=== PATIENT | female | born 1965 | race Caucasian/White ===

== ENCOUNTER 2019-08-11 16:22 | Emergency (ER) | payer OTHER, SELFPAY ==
[2019-08-11] VITALS (7 sets, daily range): BP systolic 103–143; BP diastolic 58–86; PULSE 64–82; RESP 16–18; TEMP 36.7; O2SAT 98–100; BMI 26.6
--- NOTE | 2019-08-11 16:32 | CTR_ITS ---
PROCEDURE INFORMATION: Exam: CT Head Without Contrast Exam date and time: 08/11/2019 4:47 PM Age: 54 years old Clinical indication: Injury or trauma; Fall; Additional info: Fall, possible loc fell of ladder hitting head TECHNIQUE: Imaging protocol: Computed tomography of the head without contrast. Total DLP: 881.44 mGy-cm Radiation optimization: All CT scans at this facility use at least one of these dose optimization techniques: automated exposure control; mA and/or kV adjustment per patient size (includes targeted exams where dose is matched to clinical indication); or iterative reconstruction. COMPARISON: No relevant prior studies available. FINDINGS: Brain: Normal. No hemorrhage. Unremarkable white matter. No mass effect. Ventricles: Normal. No ventriculomegaly. Bones/joints: Unremarkable. No acute fracture. Sinuses: Visualized sinuses are unremarkable. No fluid levels. Mastoid air cells: Visualized mastoid air cells are well aerated. Soft tissues: Unremarkable. CT/CT head wo con* [id number] IMPRESSION: No acute intracranial abnormality. Radiation Dose CTDIVOL = (mGy): DLP = 881.44 (mGy-cm)
--- NOTE | 2019-08-11 16:32 | CTR_ITS ---
PROCEDURE INFORMATION: Exam: CT Cervical Spine Without Contrast Exam date and time: 08/11/2019 4:47 PM Age: 54 years old Clinical indication: Injury or trauma; Initial encounter; Blunt trauma; Patient HX: Fall approx. 4 ft from ladder; Additional info: Fall, neck pain TECHNIQUE: Imaging protocol: Computed tomography images of the cervical spine without contrast. Total DLP: 558 mGy-cm Radiation optimization: All CT scans at this facility use at least one of these dose optimization techniques: automated exposure control; mA and/or kV adjustment per patient size (includes targeted exams where dose is matched to clinical indication); or iterative reconstruction. COMPARISON: No relevant prior studies available. FINDINGS: Vertebrae: No visible fracture, subluxation, or dislocation. Discs/Spinal canal/Neural foramina: Moderate degenerative disease and degenerative disc disease with disc space height loss and spondylosis deformans C5/C6 and to a less significant degree C6/C7. No visible significant central canal stenosis. Mild right neural foramina narrowing C5/C6. Mild posterior annular disc bulge osteophyte complex C5/C6 without evidence of significant central canal stenosis/spinal stenosis. Soft tissues: Unremarkable. Lungs: Lung apices are normal. CT/CT cervical spin wo con* [id number] IMPRESSION: No visible fracture, subluxation, or dislocation. Radiation Dose CTDIVOL = (mGy): DLP = 558 (mGy-cm)
--- NOTE | 2019-08-11 16:32 | CTR_ITS ---
PROCEDURE INFORMATION: Exam: CTA Angiogram of the Abdominal Aorta and Bilateral Lower Extremities (Run-off) With IV Contrast Exam date and time: 08/11/2019 4:47 PM Age: 54 years old Clinical indication: Injury or trauma; Fall; Initial encounter; Without foreign body; Pelvic area; Left; Patient HX: Fell approx. 4 ft off ladder w puncture wound L groin from moose antler; Additional info: Puncture wound groin TECHNIQUE: Imaging protocol: CT angiogram of the abdominal aorta, pelvis and bilateral lower extremities with IV iodinated contrast. 3D rendering: MIP and/or 3D reconstructed images were created by the technologist. Total DLP: 1273.25 mGy-cm Radiation optimization: All CT scans at this facility use at least one of these dose optimization techniques: automated exposure control; mA and/or kV adjustment per patient size (includes targeted exams where dose is matched to clinical indication); or iterative reconstruction. Contrast material: OMNI 350; Contrast volume: 95 ml; Contrast route: 18G; COMPARISON: No relevant prior studies available. FINDINGS: Aorta: Not imaged Celiac trunk and mesenteric arteries: Not imaged Renal arteries: Not imaged Right iliac arteries: What was imaged reveals no evidence for occlusion or significant stenosis. Right femoral/popliteal arteries: No occlusion or significant stenosis. Right infrapopliteal arteries: No occlusion or significant stenosis. Left iliac arteries: No occlusion or significant stenosis. Left femoral/popliteal arteries: No occlusion or significant stenosis. Left infrapopliteal arteries: No occlusion or significant stenosis. Liver: Not imaged Gallbladder and bile ducts: Not imaged Pancreas: Not imaged Spleen: Not image Adrenals: Not imaged Kidneys and ureters: Not imaged Stomach and bowel: But was imaged in the field of view unremarkable. Appendix: No evidence of appendicitis. Bladder: Unremarkable. No mass. Reproductive: Unremarkable. Intraperitoneal space: Unremarkable. No free air. No significant fluid collection. Intraperitoneal space: Unremarkable. No free air. No significant fluid collection. Lymph nodes: No lymphadenopathy. Bones/joints: Nondisplaced avulsion fracture of the left anterior superior iliac spine of the ileum. The fracture fragment measures approximately 41 mm x 17 mm. Soft tissues: Rare tiny pocket of subcutaneous emphysema left groin without underlying vascular compromise or pathology. No visible loculated fluid collection to suggest the presence of hematoma, seroma, or abscess. Overlying soft tissue contusion. CT/CT angio abd aorta runof [id number] IMPRESSION: 1. Nondisplaced avulsion fracture of the left anterior superior iliac spine of the left ilium. 2. Rare tiny pocket of subcutaneous emphysema left groin without underlying vascular compromise. 3. No visible loculated fluid collection to suggest the presence of hematoma, seroma, or abscess. 4. Mild soft tissue contusion left groin. Radiation Dose CTDIVOL = (mGy): DLP = 1273.25 (mGy-cm)
--- NOTE | 2019-08-11 16:34 | W.ED.FALL ---
HPI - Fall General: Chief Complaint: Fall Stated Complaint: fell off ladder Time Seen by Provider: 08/11/19 16:32 History of Present Illness: HPI Narrative: 54-year-old female was taking a set of and worse off of wall of her being uses decoration and is she was coming down the ladder holding them she fell off of the ladder and landed on 1 of the tines of the annular it punctured her through the jeans in the left groin. She was ambulatory afterwards she did think she hit her head a little bit and may have lost consciousness she also complaining of some neck pain she denies any trouble breathing she denied any vomiting vision is normal. She is not on any blood thinners. Associated symptoms-after fall: Denies abdominal pain or chest pain Review of Systems Const: Denies: fever, chills, body aches, change in appetite, fatigue or malaise ENMT: Denies: throat pain, ear pain, nasal discharge or nasal congestion Card: Denies: chest pain, edema, shortness of breath on exertion or shortness of breath when lying down Resp: Denies: shortness of breath, productive cough or non-productive cough GI: Denies: abdominal pain, nausea, vomiting, vomiting blood, coffee grounds in vomit, diarrhea, constipation, bloating, blood in stool or black tarry stool : Denies: flank pain, difficulty urinating, painful urination, urinary frequency or urinary urgency Skin/Breast: Denies: rash or itching PFS ED PFSH: Social History Smoking and tobacco status: never smoked Physical Exam Const: COMMON NORMALS: no apparent distress GENERAL APPEARANCE: cooperative and comfortable ORIENTATION/CONSCIOUSNESS: Yes awake, Yes oriented to person, Yes oriented to place and Yes oriented to time HENMT: COMMON NORMALS: normocephalic, head/scalp atraumatic, hearing grossly normal bilaterally, external ears normal, EAC's normal, TM's normal bilaterally, nasal mucous membranes and turbinates normal, moist oral mucous membranes and oropharynx normal HEAD & SCALP: normocephalic and atraumatic NOSE: nasal mucous membranes and turbinates normal EXTERNAL EAR: Yes external ears normal EXTERNAL AUDITORY CANAL: EAC's normal TYMPANIC MEMBRANE: TM's normal bilaterally Eye: COMMON NORMALS: PERRL, EOMs intact bilaterally, conjunctivae normal and no scleral icterus CONJUNCTIVA: Yes conjunctivae normal PUPIL: Yes PERRL Neck/C-Spine: COMMON NORMALS: full ROM, no lymphadenopathy, supple and no JVD Lymph: LYMPHATIC: no lymphadenopathy noted and no lymphedema noted Resp: COMMON NORMALS: normal respiratory effort, no retractions, no use of accessory muscles and clear to auscultation bilaterally AUSCULTATION: clear to auscultation bilaterally Cardio: COMMON NORMALS: no JVD, regular rate, regular rhythm and no murmurs RATE: regular rate RHYTHM: regular rhythm GI: COMMON NORMALS: soft to palpation and no hepatosplenomegaly AUSCULTATION: Yes normoactive bowel sounds PALPATION: Yes soft, No tender, No guarding and Yes no hepatosplenomegaly Extremity: COMMON NORMALS: normal to inspection, normal capillary refill, no clubbing, cyanosis or edema, no calf tenderness and no pedal edema Neuro: SENSORIUM/ORIENTATION: Yes oriented to person, Yes oriented to place and Yes oriented to time Skin: NARRATIVE SKIN EXAM: Puncture wound in the left lateral groin there is no active bleeding from it is about 1 cm and gaping slightly there is no evidence of debris within the wound. CT was negative for any injury to vascular structures there is a avulsion fracture of the ASIS. Consistent with exam findings. Procedures Laceration Laceration 1: Site: lower extremity (Left groin) Side (If applicable): left Size (cm): 1 Description: linear Local Anesthetic: lidocaine 1% and with epi Amount of anesthesia used (mL): 7 Pre-repair: wound explored and irrigated extensively Course Vital Signs: Vital signs: Vital Signs Temperature 98.1 F 08/11/19 16:31 Pulse Rate 72 08/11/19 19:01 Respiratory Rate 18 08/11/19 19:01 Blood Pressure 134/59 08/11/19 19:01 Pulse Oximetry 99 08/11/19 19:01 MDM - Fall [facility] Narrative: Medical decision making narrative: Findings with the patient. CT head and neck are normal. There is no evidence of any serious vascular injury on the CTA of the groin and lower extremity on the left. We will go ahead and discharge her home prior to discharge the wound was anesthetized and then aggressively irrigated there was no significant bleeding no debris was flushed out. Wound was left open to heal by secondary intent. Wound care instructions given apply mupirocin twice daily. Patient be started Augmentin given hydrocodone for pain advised her that the ASIS fracture will be quite painful for the next several weeks. She is also has Augmentin 875 twice daily for 7 days any signs of infection return follow-up with primary care Lab Data: Labs: Lab Results 08/11/19 08/11/19 Range/Units 16:54 16:54 WBC 2.9 L (4.0-10.0) 10^3/ uL RBC 4.70 (4.1-5.3) 10^6/u L Hgb 10.4 L (11.5-15.3) g/dL Hct 35.4 L (37.0-47.0) % MCV 75.3 L (81-99) fL MCH 22.1 L (28.0-34.0) pg MCHC 29.4 L (30.0-36.0) g/dL RDW 17.3 H (12.1-15.1) % Plt Count 192 (130-400) 10^3/c mm MPV 8.9 (7.4-10.4) fL Neut % (Auto) 58.9 % Lymph % (Auto) 30.7 % Tyrrell % (Auto) 8.0 % Eos % (Auto) 1.4 % Baso % (Auto) 0.7 % Neut # (Auto) 1.7 L (1.8-7.7) 10^3/u L Lymph # (Auto) 0.9 (0.8-4.8) 10^3/u L Tyrrell # (Auto) 0.2 (0.2-0.9) 10^3/u L Eos # (Auto) 0.0 (0.0-0.8) 10^3/u L Baso # (Auto) 0.0 (0.0-0.1) 10^3/u L Nucleated RBC % (a uto) 0 % Nucleated RBCs # 0.0 /100WBC Sodium 135 L (136-145) mmol/L Potassium 3.9 (3.5-5.1) mmol/L Chloride 98 (98-107) mmol/L Carbon Dioxide 29 (22-29) mmol/L Anion Gap 11.9 (5-19) BUN 14 (6-20) mg/dL Creatinine 0.8 (0.5-0.9) mg/dL GFR Calculation 75.0 L (90-130) mL/min Glucose 89 (65-115) mg/dL Calculated Osmolal ity 276 L (285-295) mOsm/k g Calcium 9.7 (8.5-10.5) mg/dL Discharge Plan Discharge Patient Disposition: Home, Self-Care Clinical Impression: Puncture wound of groin, Fall (on) (from) other stairs and steps, initial encounter, Closed avulsion fracture of anterior superior iliac spine of pelvis Condition: Stable Prescriptions: New Augmentin 875-125 mg tablet 1 tab PO Q12H Qty: 14 RF: 0 hydrocodone-acetaminophen 5-325 mg tablet 1 tab PO Q6H PRN (Reason: pain) Qty: 20 RF: 0 mupirocin 2 % ointment 1 applic TOPICAL BID Qty: 22 RF: 0 Discharge Orders: Discharge Order (Routine); Ordered 08/11/19 Ordered By: Antoine Parisi Referrals: Gustabo Zhang MD [Primary Care Provider] - Discharge Date/Time: 08/11/19 19:17 Coding Level of Care Code ED Assembly Line Supervisor for Jean Claudeg Allen
[2019-08-11 17:08] LABS: Basophils % 0.7 %; Eosinophils % 1.4 %; Hematocrit 35.4 % (37.0-47.0); Hemoglobin 10.4 g/dL (11.5-15.3); Lymphocytes # 0.9 10^3/uL (0.8-4.8); Lymphocytes % 30.7 %; Mean Corpuscular HGB Conc 29.4 g/dL (30.0-36.0); Mean Corpuscular Hemoglobin 22.1 pg (28.0-34.0); Mean Corpuscular Volume 75.3 fL (81-99); Mean Platelet Volume 8.9 fL (7.4-10.4); Monocytes # 0.2 10^3/uL (0.2-0.9); Neutrophils # 1.7 10^3/uL (1.8-7.7); Neutrophils % 58.9 %; Nucleated Red Blood Cells % 0 %; Platelet Count 192 10^3/cmm (130-400); Red Cell Distribution Width 17.3 % (12.1-15.1); White Blood Count 2.9 10^3/uL (4.0-10.0)
--- NOTE | 2019-08-11 17:08 | PC.NURSE ---
Pt to CT
[2019-08-11 17:25] LABS: Anion Gap 11.9 (5-19); Blood Urea Nitrogen 14 mg/dL (6-20); Calcium 9.7 mg/dL (8.5-10.5); Carbon Dioxide 29 mmol/L (22-29); Chloride 98 mmol/L (98-107); Glucose 89 mg/dL (65-115); Osmolality Calculated 276 mOsm/kg (285-295); Potassium 3.9 mmol/L (3.5-5.1); Sodium 135 mmol/L (136-145)
--- NOTE | 2019-08-11 17:56 | PC.NURSE ---
Pt placed on bedpan
[2019-08-11] MEDS: morphine 4 mg/mL SDV 1 mL IVP (18:10)
--- NOTE | 2019-08-11 18:12 | PC.NURSE ---
Pt voided to bedpan. Radha care provided. Dr Parisi at bedside to discuss plan of care.
[2019-08-11] MEDS: ceFAZolin 1,000 MG in sodium chloride 0.9% (plus) 50 ML 100 MG IV (18:31)
[2019-08-11] MEDS: tetanus-dipt-pertussis 0.5 mL SDV IM (18:58)
--- NOTE | 2019-08-11 19:14 | PC.NURSE ---
Pharmacy's are closed this evening until tomorrow at 10am. VO received from Dr Parisi to send 6 hydrocodone home and 1 augmentin tablet to get pt through until prescriptions can be filled.
[2019-08-11] MEDS: amoxicillin-clav 875-125 mg Tablet 1 TAB PO (19:16)
[2019-08-11] MEDS: HYDROcodone-acetaminophen 5-325 mg Tablet 6 TAB PO (19:16)
== END 2019-08-11 19:17 | disposition home or self-care (01) ==
PROVIDERS: Emergency Provider Family Medicine; Family Provider Family Medicine; PCP Family Medicine
DX: S31.139A Puncture wound of abdominal wall without foreign body, unspecified quadrant without penetration into peritoneal cavity, initial encounter (principal); S32.312A Displaced avulsion fracture of left ilium, initial encounter for closed fracture; W11.XXXA Fall on and from ladder, initial encounter
CPT/HCPCS: 12345; 70450; 72125; 75635; 80048; 85025; 90471; 90715; 96365; 96375; 99283; 99284; J0690; J2001; J2270; Q9967

== ENCOUNTER → 2025-01-01 13:21 | Outpatient (BNVA) | payer OTHER, SELFPAY | PROVIDERS: Family Provider Family Medicine; PCP Family Medicine; Visit Provider Family Medicine | DX: D64.9 Anemia, unspecified (principal); D86.9 Sarcoidosis, unspecified | CPT/HCPCS: 80053; 80061; 85025 ==

== ENCOUNTER 2025-01-09 14:19 | Outpatient (CLI) | payer OTHER, SELFPAY ==
--- NOTE | 2025-01-09 14:20 | MM_ITS ---
WS: [id number] BILATERAL 3D TOMOSYNTHESIS DIGITAL SCREENING MAMMOGRAM WITH CAD CLINICAL INFORMATION: screening HISTORY: Screening mammogram. No current complaints. COMPARISON: None. TECHNIQUE: Bilateral CC and MLO. FINDINGS: The breast are composed of extremely dense tissue, which can limit the detection of small underlying mass lesions. No suspicious focal mass, asymmetry, calcifications, or architectural distortion. No evidence of malignancy. MM/MM scr tomosynthesis [id number] IMPRESSION: DENSITY: The breasts are extremely dense, which lowers the sensitivity of mammo graphy. BI-RADS: 1 - Negative FOLLOW UP: 1 Year Follow-up Recommend return to annual screening mammography.
--- NOTE | 2025-01-09 15:00 | XR_ITS ---
WS: [id number] DEXA (DUAL ENERGY X-RAY ABSORPTIOMETRY) Bone mineral density was performed using a [employer] machine. HISTORY: screening COMPARISON: None available. Lumbar spine BMD (L1-L4): 1.157 g/cm2 T score: -0.2 Z score: 0.8 Total hip BMD: Left: 0.888 g/cm2. T score: -1.0 Z score: -0.1 Right: 0.919 g/cm2. T score: -0.7 Z score: 0.1 10 year probability of a major osteoporotic fracture is 13.7%. XR/XR DEXA axial skeleton* [id number] IMPRESSION: NORMAL BONE MINERAL DENSITY based upon the WHO classification for females.
== END 2025-01-09 14:20 | disposition home or self-care (01) ==
LOC: RAD 14:20
PROVIDERS: Family Provider Family Medicine; PCP Family Medicine; Visit Provider Family Medicine
DX: Z00.00 Encounter for general adult medical examination without abnormal findings (principal); D64.9 Anemia, unspecified; D72.819 Decreased white blood cell count, unspecified
CPT/HCPCS: 77063; 77067; 77080